=== PATIENT | male | born 1995 | race Caucasian/White ===

== ENCOUNTER 2016-11-29 15:06 | Emergency (ER) | payer SELFPAY ==
[~2016-11-29] VITALS: Ht 177.8 cm; Wt 70.5 kg
[2016-11-29] MEDS ORDERED: HYDROcodone/APAP 5 MG/325 MG (NORCO) TAB PO ONE (16:30)
[2016-11-29 17:01] VITALS: BP 132/54
== END 2016-11-29 16:55 | disposition home or self-care (01) ==
LOC: ED 15:08
DX: S83.92XA Sprain of unspecified site of left knee, initial encounter (principal); W19.XXXA Unspecified fall, initial encounter
CPT/HCPCS: 73562; 99282; 99283

== ENCOUNTER 2016-12-04 16:17 | Emergency (ER) | payer SELFPAY ==
[~2016-12-04] VITALS: Ht 177.8 cm; Wt 78.5 kg
[2016-12-04 17:34] VITALS: BP 153/69
--- NOTE | 2016-12-04 17:34 | NUR ---
pt beligerent and yelling when he woke up, demanded he leave, profanity used, iv site taken out, instructions given
== END 2016-12-04 17:30 | disposition home or self-care (01) ==
LOC: ED 16:18
DX: J02.9 Acute pharyngitis, unspecified (principal); M25.561 Pain in right knee
CPT/HCPCS: 99282; L1830; 99283

== ENCOUNTER 2017-03-12 13:52 | Emergency (ER) | payer SELFPAY ==
[~2017-03-12] VITALS: Ht 172.7 cm; Wt 83.9 kg
[~2017-03-12 13:52] MED LIST: AC500T PO; ACET-789 PO; ALBU8CC IH; AZIT250T81 PO; BISM525O18 PO; CEPH-507 PO; CLIN-78 PO; D ME PO; DEXT5SYR PO; DEXT5SYR7 PO; DIPH25CA79 PO; DOXY100T41 PO; HYDR-3702 PO; INHA1INH59 MC; MUPI15CR TP; NAPR500T8 PO; NO HOME MEDS; NO MEDS; ONDA8TAB9 PO; PHEN1PAC PO; PRCD5U PO; PRED20TA PO; SULF-228 PO; SULF1TAB35 PO; TRM50T PO; [UNRECOGNIZED DRUG - REMARK]
--- OUTSIDE RECORDS SUMMARY | 2017-03-12 13:57 | XMS REPORT | Continuity of Care Document ---
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 Role Phone Ruben Huff MD PCP [phone] Insurance Providers Payer Name Policy Number Subscriber Name Relationship Self Pay Meri Friedman 18 Self / Same As Patient Chief Complaint and Reason for Visit Chief Complaint Injury Reason for Visit Fracture of third metacarpal bone of left hand Problems Medical Problems Problem Onset Date Status Laceration of hand 05/08/2012 Resolved Sprain of ankle 07/02/2012 Resolved Otalgia 11/28/2012 Resolved Sore throat symptom 12/13/2012 Resolved Acute upper respiratory infection 06/08/2013 Resolved Impetigo 06/17/2013 Resolved Insect bite - wound 06/17/2013 Resolved Disorder of skin AND/OR subcutaneous tissue 06/24/2013 Resolved Upper respiratory infection 10/15/2013 Resolved Nonspecific syndrome suggestive of viral illness 10/15/2013 Resolved Feeling suicidal 12/07/2013 Resolved Fracture of neck of femur ~01/26/2014 Resolved Facial laceration ~02/27/2014 Resolved Contusion of hand 03/05/2014 Active Hand pain 03/05/2014 Active Panic attack ~04/13/2014 Active Pharyngitis ~08/05/2014 Active Bronchitis ~08/05/2014 Active Dehydration Unknown Active Gastroenteritis Unknown Active Pneumonia Unknown Active Fracture of third metacarpal bone of left hand Unknown Active Medications Medication Dose Route Sig Days/Qty Instructions Order Date Discontinued Date Status Trimethoprim/Sulfamethoxazole 1 Ea ORAL TWICE A DAY 7 Days 09/16/12 Discontinued Doxycycline Hyclate 1 Tab ORAL TWICE A DAY 30 Qty 11/28/12 12/13/12 Discontinued Cephalexin 1,000 Mg ORAL TWICE A DAY 28 Qty 06/17/13 06/24/13 Discontinued Mupirocin Calcium 15 Gm TOPICAL TWICE A DAY 1 Qty 06/17/13 06/24/13 Discontinued Clindamycin Hcl 150 Mg ORAL FOUR TIMES DAILY 7 Qty 06/24/13 10/15/13 Discontinued Acetaminophen With Codeine 1 Each ORAL EVERY 4HRS PRN 15 Qty 06/24/13 10/15/13 Discontinued Acetaminophen 500 Mg ORAL NEEDED 10/15/13 04/13/14 Discontinued Dextromethorphan Hbr 1 Tsp ORAL NEEDED 10/15/13 10/15/13 Discontinued Promethazine/Codeine 5 Ml ORAL q6 hrs prn 60 Qty 10/15/13 12/06/13 Discontinued [No Meds] 07/05/14 08/08/14 Discontinued Ondansetron 8 Mg ORAL EVERY 8HRS 8 Qty 07/05/14 08/08/14 Discontinued Bismuth Subsalicylate 525 Mg ORAL NEEDED 08/08/14 04/24/15 Discontinued Dextromethorphan Hb/Doxylamine 10 Ml ORAL NEEDED 08/08/14 Discontinued Dextromethorphan Hbr 5 Mg ORAL NEEDED 08/08/14 12/28/14 Discontinued Phenylephrine/Acetaminophn/Pnm 1 Each ORAL NEEDED 08/08/14 Discontinued Diphenhydramine Hcl 25 Mg ORAL NEEDED 08/08/14 12/28/14 Discontinued [Flu & Cold] NEEDED 08/08/14 04/24/15 Discontinued Azithromycin 250 Mg ORAL SEE INSTRUCTIONS 6 Qty Day One: Take 2 tablets by mouth Days Two-Five: Take 1 tablet by mouth 12/28/14 04/24/15 Discontinued [No Home Meds] 04/24/15 Active Social History No social history. Hospital Discharge Instructions No hospital discharge instructions. Plan of Care Discharge Date 04/24/15 7:01pm Disposition 01 HOME OR SELF-CARE Condition at Discharge Stable Instructions/Education Provided Hand Fracture (ED) Splint Care (ED) Prescriptions See Medications Section Referrals Ruben Huff MD Additional Instructions/Education Keep the splint on until you follow up with your doctor in the next 2-3 days. Take ibuprofen as needed for pain. Some of your test results may not be complete prior to your leaving the Emergency Department. The Emergency Department is not authorized to give test results over the phone. Please contact the doctor's office listed in this packet of information for your final results. Follow up with your primary care physician or return to the Emergency Department for worsening or worrisome symptoms. * Emergency Department phone number: [phone], x [phone]* MEDICAL RECORD If you need copies of your X-rays, call [phone]. If you need copies of your medical record, including lab results, a signed authorization for release of records will be required. A telephone call for release of Health Information is not allowed. BILLING Billing can sometimes be confusing and frustrating. To help avoid confusion in the future, please take a moment to acquaint yourself with the billing parties for services. SERVICE BILLING LIBERTARIAN Emergency Room Services [facility] Physician Services [facility] X-[facility] Patients will receive bills for services from the appropriate provider. If you have any questions about your [facility] bill, our staff will be happy to assist you. Please call [phone], and ask for the billing department. THANK YOU for choosing [facility] as your emergency care provider! Functional Status No functional status results. Allergies, Adverse Reactions, Alerts Allergen Type Severity Reaction Status Last Updated Penicillin Allergy Unknown Active 02/12/14 Immunizations No immunization records. Vital Signs Acute Vital Signs Vital Response Date/Time Temperature (Fahrenheit) 98.3 Pulse 71 bpm Respirations 20 Height 5 ft 9 in Weight 159 lb Body Mass Index 23.0 kg/m^2 Results Test Source Date Result Interp. Ref. Range Comments Group A Streptococcus Culture Throat December 28, 2014 4:35pm Wound Culture Foot-Left June 17, 2013 1:30am Procedures No known history of procedures. Encounters Encounter Location Date/Time Departed Emergency Room [facility] 04/24/15 6:13pm Recent Diagnosis
--- OUTSIDE RECORDS SUMMARY | 2017-03-12 13:59 | XMS REPORT | Continuity of Care Document ---
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 * Emergency Department phone number: [phone], x [phone]* MEDICAL RECORD If you need copies of your X-rays, call [phone] x [phone]. If you need copies of [...] services. SERVICE BILLING LIBERTARIAN Emergency Room Services [facility] Physician Services [facility] Patients will receive bills for services from the appropriate provider. If you have any questions about your [facility] bill, our staff will be happy to assist you. Please call [phone], and ask for the billing department. THANK YOU for choosing [facility] as your emergency care provider! Functional Status [...] Encounters Encounter Location Date/Time Departed Emergency Room [facility] 04/24/15 6:13pm Recent Diagnosis
[2017-03-12 17:08] VITALS: BP 105/39
== END 2017-03-12 15:12 | disposition home or self-care (01) ==
LOC: ED 13:55
DX: J06.9 Acute upper respiratory infection, unspecified (principal)
CPT/HCPCS: 99281; 99283